=== PATIENT | female | born 1945 | race Caucasian/White ===

== ENCOUNTER 2021-12-27 15:50 | Emergency (ER) | payer MEDICARE, SELFPAY ==
[2021-12-27 15:48] VITALS: BP 164/85; PULSE 72; RESP 18; TEMP 37.2; O2SAT 97
--- NOTE | 2021-12-27 16:00 | DI.RAD_ITS ---
Exam(s) XR TIB/FIB RT EXAM: XR TIB/FIB RT CLINICAL HISTORY: fall. TECHNIQUE: 2D digital imaging was performed. COMPARISON: No exams were available for comparison FINDINGS: Two views There is a nondisplaced vertically orientated fracture line in the proximal tibial metaphysis and michelle physis. Recommend further imaging, starting with knee films. There are no fractures in the lower ti favian and fibula. IMPRESSION: Nondisplaced proximal tibial fracture. Further imaging starting with knee images is recommended DATA REPOSITORY: RADIATION DOSE DELIVERED:
--- NOTE | 2021-12-27 16:08 | ED.GENADUL_ITS ---
Discharge Plan Disposition Patient Disposition: HOME Condition: Stable Discharge Details Clinical Impression: Closed fracture of tibial plateau Primary Care Provider: Unknown,Unknown ED Provider: Jamar Mojica Home Meds and New Rx's Prescriptions: New hydrocodone-acetaminophen 5-325 mg tablet 1 tab PO Q6H PRNQty: 10 0RF Continued amitriptyline 10 MG tablet 3 tab PO HS Qty: 180 tramadol 50 mg Tablet Discharge Instructions Instructions: Leg Fracture (ED) Additional Instructions: You have a significant fracture of your right lower leg/knee. It is important to keep the patient But if you develop any significant swelling, severe pain, change in coloration of your foot, or loss of sensation of your foot you may loosen the Stephane wrap but you should return immediately to the emergency department for reassessment. The pain medication you are prescribed does have acetaminophen/Tylenol in it so please ensure that you do not go over 3000 mg in a 24-hour period. It is very important that you follow-up with a local orthopedist as soon as you return home. Discharge Data Discharge Date/Time-TO BE ENTERED AT DEPARTURE: 12/27/21 21:40 Medical Decision Making Patient presenting to the emergency department via EMS for chief complaint of fall while going upstairs and significant right knee/leg pain. Patient denies any other injury or trauma. Physical exam shows significant swelling and tenderness to proximal tib-fib of the right lower extremity. There is some subtle ecchymosis and swelling also to this area. Exam is otherwise unremarkable. Plan to perform plain film imaging and treat patient's pain pending results. Patient does have significant medical history of multiple sclerosis with persistent numbness and tingling to lower extremities that she reports is unchanged. Plain film imaging shows a vertical lucency that is suspicious for possible fracture. We will plan on performing CT imaging for further evaluation. Patient continues to have pain after tramadol so we will give some acetaminophen pending results Review of CT imaging shows a significant tibial plateau fracture that is comminuted. Patient reassessed and informed of fracture and given continued hortensia n will give some IM morphine and contact orthopedist for recommendations given that patient is due to travel early next week to return home. Spoke with Dr. Huber whom recommended long-leg splinting from mid thigh down to ankle based on posterior and medial lateral. Patient was splinted. Per Ortho recommendations patient to be mostly nonweightbearing and allow for toe-touch only as needed to prevent falls. This was communicated to the patient. Discussed with patient and family following up here versus traveling home. Family stated that they would prefer to travel home and see orthopedist when they return home. Imaging distress provided along with radiologist interpretation of the CT imaging. After discussion of diagnosis and plan of care patient has no further needs, questions, or concerns and states clear understanding to return to the emergency department for any worsening symptoms. Imaging Data Radiologic Study: Imaging: X-Ray Radiologist's impression: IMPRESSION: Suggestion of a nondisplaced vertically oriented fracture through the proximal tibial metaphysis. Best appreciated on the AP view. CT follow-up may be warranted for confirmation and further evaluation Radiologic Study #2: Imaging: CT Scan Radiologist's impression: IMPRESSION: 1. Tibial plateau fracture as described above. Mild depression of the lateral tibial plateau. Comminution of the posterior aspect of the tibial plateau. 2. Fracture of the fibular head and neck with minor displacement. 3. Lipohemarthrosis. HPI General Mode of arrival: EMS . Date/Time Provider Initiated Documentation: 12/27/21 16:06 . Limitations to Documentation: no limitations . Information obtained by: patient and RN notes reviewed . History of Present Illness 76 year old F presents to the emergency department with the chief complaint of Fall with right leg injury, described as moderate, Quality is described as aching and sharp, and is localized to the right and lower extremity. Patient reports no radiation. Patient started experiencing this hour(s) (2) and it has been constant. Immobilization improves symptom(s), Movement worsens symptoms . Patient notes no other symptoms.. Patient did receive the following treatments prior to arrival, none Related Data Home Medications Medication Instructions Recorded Confirmed amitriptyline 10 mg tablet 3 tab PO HS #180 tab-caps 10/25/12 12/27/21 hydrocodone 5 mg-acetaminophen 325 1 tab PO Q6H PRN #10 tabs 12/27/21 mg tablet tramadol 50 mg tablet mg 12/27/21 Previous Rx's Medication Instructions Recorded hydrocodone 5 mg-acetaminophen 325 1 tab PO Q6H PRN #10 tabs 12/27/21 mg tablet Allergies Allergy/AdvReac Type Severity Reaction Status Date / Time acetaminophen [From Percocet] Allergy Mild Unverified 12/27/21 15:54 oxycodone [From Percocet] Allergy Mild Unverified 12/27/21 15:54 General Stated Complaint: Orthopedic DEE DEE: 4 Review of Systems Cardiovascular Cardiovascular: Denies chest pain, Denies syncope and Denies dyspnea Respiratory Respiratory: Denies dyspnea Musculoskeletal Musculoskeletal: Reports as per HPI, Denies numbness and Denies tingling Integumentary/Breasts Skin/Breast: Denies rash, Denies sores and Denies wounds Neurologic Neurologic: Denies syncope, Denies numbness and Denies tingling PFSH All Active Problems (Updated 12/27/21 @ 20:46 by Jamar Mojica NP) Closed fracture of tibial plateau (Acute) Hypertension (Chronic) Multiple sclerosis (Chronic) Social History Smoking/Tobacco Use Status: Never Smoking risk assessment performed?: Yes Alcohol Intake: current Alcohol Intake frequency: a few times a month Alcohol type: wine Drug use: Never Substance use type: does not use Do you feel safe at home: Yes Do you feel safe in your relationship?: Yes Exam Const General: cooperative, no acute distress and not ill appearing Orientation: alert, awake and oriented x3 Resp Effort & Inspection: normal respiratory effort, able to speak in complete sentences and no respiratory distress Cardio Rate: regular rate Rhythm: regular rhythm Pulses: dorsalis pedis present Skin General skin exam: no rashes or lesions noted Neuro General: patient alert, patient awake, patient oriented x3, moves all extremities and no focal motor deficits Sensory Exam: no sensory deficits noted Extrem General: normal exam except as noted Left upper extremity: elbow/forearm Details: ecchymosis Right lower extremity: lower leg Details: tenderness Location: of the proximal tibia and of the proximal fibula, localized swelling Location: of the proximal lower leg and ecchymosis (proximal lower leg); no abrasions and no lacerations Course Vital Signs Vital signs: Vital Signs Temperature 37.2 C 12/27/21 15:48 Pulse 72 12/27/21 15:48 Respiratory Rate 18 12/27/21 15:48 Blood Pressure 164/85 H 12/27/21 15:48 Pulse Oximetry 97 12/27/21 15:48 Temperature 37.2 C 12/27/21 15:48 Temperature Source Tympanic 12/27/21 15:48 Pulse 72 12/27/21 15:48 Respiratory Rate 18 12/27/21 15:48 Blood Pressure 164/85 H 12/27/21 15:48 Blood Pressure Position Sitting 12/27/21 15:48 Pulse Oximetry 97 12/27/21 15:48 Oxygen Delivery Method Room Air 12/27/21 15:48 Oxygen Flow Rate 0 12/27/21 15:48
[2021-12-27] MEDS: traMADol 50 MG TAB PO (16:14)
--- NOTE | 2021-12-27 16:45 | DI.CT_ITS ---
Exam(s) CT LOWER EXTREMITY RT WO EXAM: CT LOWER EXTREMITY RT WO CLINICAL HISTORY: trauma- proxmial tib pain. TECHNIQUE: Imaging Protocol: Axial computed tomography images with coronal and sagittal reformatted images were created and reviewed. CONTRAST MATERIAL: Intravenous: None COMPARISON: CR,XR XR TIB/FIB RT from 12/27/2021 FINDINGS: There is a tibial plateau fracture involving both medial lateral aspect of the tibial plateau as and tibial spines. This is a T-shaped fracture. The posterior aspect of this tibial plateau fracture ex hibits comminution. Also some displacement. Mild depression. 3 millimeters step. Joint effusion-h emarthrosis in the knee noted. In addition, there is a vertically orientated fracture line extending caudally from the posterior aspect of the tibial plateau fracture down into the upper half of the di aphysis of the tibia, nondisplaced. In addition, there is a fracture of the fibular head and neck with mild displacement. IMPRESSION: Mildly depressed tibial plateau fracture with comminuted posterior aspect of the fracture as well as fracture line extending vertically down into the diaphysis. Also fracture of the fibular head and neck with mild displacement. Knee joint effusion-hemarthrosis. RADIATION DOSE DELIVERED: 426mGy.cm Total DLP DATA REPOSITORY: All CT scans at this facility are submitted to the National Radiology Data Registry (NRDR) Dose Index Registry (DIR) with the [employer] ([employer]). RADIATION OPTIMIZATION: All CT scans at this facility use at least one of these dose optimization te chniques: automated exposure control; mA and/or kV adjustment per patient size (includes targeted exa ms where dose is matched to clinical indication); or iterative reconstruction.
--- NOTE | 2021-12-27 16:55 | DI.VRAD_ITS ---
PROCEDURE INFORMATION: Exam: XR Right Tibia and Fibula Exam date and time: 12/27/2021 4:29 PM Age: 76 years old Clinical indication: Other: Fall, RT lower leg pain TECHNIQUE: Imaging protocol: XR Right tibia and fibula. Views: 2 views. COMPARISON: No relevant prior studies available. FINDINGS: Bones/joints: Vertically oriented lucency through the proximal tibial metaphysis is concerning for a nondisplaced fracture. This is best appreciated on the AP view. No definitive involvement of the tibial plateau by plain film. CT follow-up may be warranted to further evaluate extent of this suggested fracture. No definable fibular fracture. Distal femur is intact. Distal tibia is unremarkable. Ankle joint is unremarkable. Soft tissues: Soft tissue swelling of the proximal lower leg. No foreign body. IMPRESSION: Suggestion of a nondisplaced vertically oriented fracture through the proximal tibial metaphysis. Best appreciated on the AP view. CT follow-up may be warranted for confirmation and further evaluation. Dictated and Authenticated by: Scott Khan MD. Ordering:MILLA Roldan MD
[2021-12-27] MEDS: Acetaminophen 500 MG TAB 1000 MG PO (17:46)
--- NOTE | 2021-12-27 18:17 | DI.VRAD_ITS ---
PROCEDURE INFORMATION: Exam: CT Right Lower Extremity Without Contrast; Lower Leg Exam date and time: 12/27/2021 5:57 PM Age: 76 years old Clinical indication: Injury or trauma; Fall; Blunt trauma; Knee and lower leg; Right; Injury date: Today TECHNIQUE: Imaging protocol: CT of the Right lower extremity without contrast was performed. Exam focused on the lower leg. Radiation optimization: All CT scans at this facility use at least one of these dose optimization techniques: automated exposure control; mA and/or kV adjustment per patient size (includes targeted exams where dose is matched to clinical indication); or iterative reconstruction. COMPARISON: CR XR TIB/FIB RT 12/27/2021 4:29 PM FINDINGS: Bones/joints: CT imaging through the right knee shows more extensive fracture than was appreciated by plain film. There is a fracture of the tibial plateau. The vertically oriented fracture plane seen on earlier plain film involves the posterior cortex. There is also a comminuted fracture of the posterior aspect of the tibial plateau. See series 2, image 61. This extends into the region of the tibial spine. There is depression of the mid aspect of the medial tibial plateau articular surface approximately 4 mm. See series 7, image 39. There is a small fragment displaced posteriorly from the lateral tibial plateau on sagittal series 7, image 54. There is no felicitas depression of the lateral tibial plateau. There is a mild fracture of the fibular neck and the posterior aspect of the fibular head. Minor displacement. See sagittal series 7, image 66. Series 5, image 262. Distal femur is intact. Patella is intact. Small Lipohemarthrosis. Soft tissues: Mild soft tissue swelling of the subcutaneous tissues surrounding the knee. No felicitas hematoma. Muscular compartment is unremarkable. Subcutaneous soft tissue calcifications likely representing venous phleboliths. IMPRESSION: 1. Tibial plateau fracture as described above. Mild depression of the lateral tibial plateau. Comminution of the posterior aspect of the tibial plateau. 2. Fracture of the fibular head and neck with minor displacement. 3. Lipohemarthrosis. Dictated and Authenticated by: Scott Khan MD. Ordering:MILLA Roldan MD
[2021-12-27] MEDS: MORPHine 4 MG/ML SYR IM (19:01)
[2021-12-27] MEDS: Ondansetron O.D.T. 4 MG TABEF PO (19:02)
[2021-12-27] MEDS: Ketorolac 15 MG/ML VIAL IM (20:56)
[2021-12-27] MEDS: Ondansetron O.D.T. 4 MG TABEF, 3 TABS/BTL PO (20:57)
== END 2021-12-27 21:40 | disposition home or self-care (01) ==
PROVIDERS: Emergency Provider Nurse Practitioner Family
DX: S82.144A Nondisplaced bicondylar fracture of right tibia, initial encounter for closed fracture (principal); W18.39XA Other fall on same level, initial encounter
CPT/HCPCS: 29505; 96372; 99284; 73590; 73700; 99283; J1885; J2270